=== PATIENT | female | born 1980 | race African-American/Black ===

== ENCOUNTER 2018-01-29 19:07 | Emergency (ER) | payer MEDICAID ==
[~2018-01-29] VITALS: Ht 165.1 cm; Wt 77.0 kg
[2018-01-29 19:20] VITALS: BP 123/78
== END 2018-01-29 21:07 | disposition home or self-care (01) ==
LOC: ER 20:57
DX: J70.5 Respiratory conditions due to smoke inhalation (principal)
CPT/HCPCS: 99281